=== PATIENT | male | born 1955 | race Caucasian/White ===

== ENCOUNTER 2016-10-03 10:50 | Emergency (ER) | payer OTHER ==
[~2016-10-03] VITALS: Ht 177.8 cm; Wt 130.4 kg
[~2016-10-03 10:50] MED LIST: OXYC-229
[2016-10-03 10:52] VITALS: BP 152/98
[2016-10-03] MEDS ORDERED: OXYcodone/APAP 5/325MG TABLET ONE (11:16)
[2016-10-03] MEDS ORDERED: METHOCARBAMOL 750 MG TABLET ONE (11:17)
[2016-10-03] MEDS ORDERED: IBUPROFEN 200 MG TABLET ONE (11:17)
[2016-10-03] MEDS ORDERED: OXYcodone/APAP 5/325MG TABLET PO ONE (11:30)
[2016-10-03] MEDS ORDERED: IBUPROFEN 200 MG TABLET PO ONE (11:30)
[2016-10-03] MEDS ORDERED: METHOCARBAMOL 750 MG TABLET PO ONE (11:30)
== END 2016-10-03 12:17 | disposition home or self-care (01) ==
LOC: ED 11:16
DX: S39.012A Strain of muscle, fascia and tendon of lower back, initial encounter (principal); K21.9 Gastro-esophageal reflux disease without esophagitis; I10 Essential (primary) hypertension; Z88.0 Allergy status to penicillin; Z88.1 Allergy status to other antibiotic agents; X58.XXXA Exposure to other specified factors, initial encounter; Y93.89 Activity, other specified; Y99.8 Other external cause status; Y92.89 Other specified places as the place of occurrence of the external cause
CPT/HCPCS: 72110; 99284

== ENCOUNTER 2017-01-15 18:54 | Emergency (ER) | payer OTHER ==
[~2017-01-15] VITALS: Ht 177.8 cm; Wt 133.1 kg
[2017-01-15] MEDS ORDERED: FLUORESCEIN OPHTHALMIC 1 MG STRIP ONE (19:18)
[2017-01-15] MEDS ORDERED: PROPARACAINE OPHTH 0.5%, 15ML ONE (19:18)
[2017-01-15] MEDS ORDERED: FLUORESCEIN OPHTHALMIC 1 MG STRIP EACHEYE ONE (19:30)
[2017-01-15 19:54] LABS: BLOOD UREA NITROGEN 20 mg/dL (7-18)
[2017-01-15] MEDS ORDERED: OMNIPAQUE 350 MG/ML, 75ML BOTTLE ONE (20:40)
[2017-01-15 21:40] VITALS: BP 144/88
== END 2017-01-15 21:40 | disposition home or self-care (01) ==
LOC: ED 21:34
DX: H10.32 Unspecified acute conjunctivitis, left eye (principal); L03.211 Cellulitis of face; K08.89 Other specified disorders of teeth and supporting structures; I10 Essential (primary) hypertension; K21.9 Gastro-esophageal reflux disease without esophagitis
CPT/HCPCS: 36415; 70487; 80048; 82040; 85025; 99285; Q9967